=== PATIENT | female | born 1980 | race Two or more races ===

== ENCOUNTER 2021-05-14 10:06 | Emergency (ER) | payer SELFPAY ==
[~2021-05-14] VITALS: Ht 154.9 cm; Wt 160.0 kg
[2021-05-14 10:58] LABS: BASO % 1 % (0-3); EOS # 0.1 x10^3/uL (0.0-0.7); EOS % 1 % (0-3); HEMATOCRIT 36.7 % (36.0-47.0); HEMOGLOBIN 12.7 g/dL (12.0-15.5); LYMPH # 1.5 x10^3/uL (1.0-4.8); LYMPH % 28 % (24-48); MEAN CORPUSCULAR HEMOGLOBIN 30 pg (25-35); MEAN CORPUSCULAR HGB CONC 35 g/dL (31-37); MEAN CORPUSCULAR VOLUME 86 fL (79-100); MONO # 0.3 x10^3/uL (0.0-1.1); MONO % 6 % (0-9); NEUT # 3.3 x10^3/uL (1.8-7.7); NEUT % 64 % (31-73); PLATELET COUNT 241 x10^3/uL (140-400); RED BLOOD COUNT 4.26 x10^6/uL (3.50-5.40); RED CELL DISTRIBUTION WIDTH 12.2 % (11.5-14.5); WHITE BLOOD COUNT 5.2 x10^3/uL (4.0-11.0)
[2021-05-14 11:10] LABS: PROTHROMBIN TIME PATIENT 13.2 SEC (11.7-14.0)
[2021-05-14 11:11] LABS: CALCIUM 8.3 mg/dL (8.5-10.1); CREATININE 0.5 mg/dL (0.6-1.0); GFR 135.3; POTASSIUM 4.1 mmol/L (3.5-5.1)
[2021-05-14 11:12] VITALS: BP 145/67
[2021-05-14 11:17] LABS: ALBUMIN 3.8 g/dL (3.4-5.0); ALBUMIN/GLOBULIN RATIO 1.2 (1.0-1.7); TOTAL BILIRUBIN 0.4 mg/dL (0.2-1.0); TOTAL PROTEIN 6.9 g/dL (6.4-8.2)
[2021-05-14 11:33] LABS: BACTERIA,URINE FEW /HPF (0-FEW)
--- NOTE | 2021-05-14 11:43 | RAD ---
US OB <14 WKS History: Reason: vag bleeding in Preg x 4 days; large clots- 12 wks preg / Spl. Instructions: / Hist ory: Comparison: None. Technique: Grayscale and color Doppler imaging of the pelvis was performed using transabdominal techn ique. Findings: The uterus measures 10 x 7.5 x 4.5 cm. No evidence of intrauterine gestational sac. Heterogeneous appearance of the endometrium with thicken ing measures 2.1 cm. Cervical length measures 3.3 cm. Right ovary measures 4.4 x 2.5 x 2.1 cm. Left ovary measures 2.9 x 2.5 x 2.0 cm. Normal Doppler flow to the ovaries bilaterally. No adnexal masses are seen. IMPRESSION: 1. No evidence of intrauterine gestational sac, may represent failed early given history o f reported 12 weeks . Recommend further clinical evaluation and short-term ultrasound follow- up if indicated. Electronically signed by: Marin Vogt DO (05/14/2021 11:41 AM) [id number]
--- NOTE | 2021-05-14 12:58 | PHYS DOC ---
Past Medical History Past Surgical History: No Surgical History Smoking Status: Never Smoker Alcohol Use: None Adult General Chief Complaint Chief Complaint: ABDOMINAL PAIN HPI HPI Patient is a 41 year old female with vaginal bleeding. Patient states that she is about 12 weeks . Last menstrual period was at the end of January. She developed some cramping a couple of days ago and then had some heavy bleeding up until yesterday. The bleeding is slowed down but she does have some residual cramps. She not feel lightheaded and has not had any syncopal episodes or generalized weakness. Review of Systems Review of Systems Constitutional: Denies fever Eyes: Denies change in visual acuity or eye pain HENT: Denies sore throat Respiratory: Denies shortness of breath Cardiovascular: Denies chest pain GI: Reports crampy abd pain, improving : Denies dysuria Musculoskeletal: Denies back or extremity injury Integument: Denies rash or skin lesions Neurologic: Denies headache, focal weakness or sensory changes All other systems were reviewed and found to be within normal limits, except as documented in this note. Allergies Allergies Allergies Coded Allergies Type Severity Reaction Last Updated Verified No Known Drug Allergies 05/14/21 No Physical Exam Physical Exam Constitutional: Well developed, well nourished, no acute distress, non-toxic appearance. HENT: Normocephalic, atraumatic, bilateral external ears normal, mucosa moist, nose normal. Eyes: EOMI, conjunctiva normal, no discharge. Neck: Normal range of motion, supple, no stridor, no meningeal signs. Cardiovascular: Regular rate and rhythm Lungs & Thorax: Bilateral breath sounds clear to auscultation Abdomen: Soft, no tenderness or obvious masses Skin: Warm, dry, no erythema, no rash. Extremities: No tenderness, no cyanosis, no clubbing, ROM intact, no edema. Neurologic: Alert and oriented, normal motor function, normal sensory function, no focal deficits noted. Psychologic: Affect normal, judgement normal, mood normal. Current Patient Data Vital Signs Vital Signs Date Time Temp Pulse Resp B/P (MAP) Pulse Ox O2 Delivery O2 Flow Rate FiO2 05/14/21 11:12 82 16 145/67 (93) 98 05/14/21 10:17 98.0 98.0 Lab Values Laboratory Tests Test 05/14/21 10:34 05/14/21 10:36 05/14/21 10:45 Urine Collection Type Unknown Urine Color (Auto) Yellow Urine Turbidity Hazy Urine pH (Auto) 6.5 (<5.0-8.0) Urine Specific [place] 1.031 (1.000-1.030) Urine Protein (Auto) Negative mg/dL (Negative) Urine Glucose (Auto)(UA) Negative mg/dL (Negative) Urine Ketones (Auto) Negative mg/dL (Negative) Urine Blood (Auto) Large (Negative) Urine Nitrite Negative (Negative) Urine Bilirubin (Auto) Negative (Negative) Urine Urobilinogen (Auto) 2 mg/dL (Normal) Urine Leukocyte Esterase (Auto) Negative (Negative) Urine RBC 11-20 /HPF (0-2) Urine WBC 1-4 /HPF (0-4) Urine Squamous Epithelial Cells Mod /LPF Urine Bacteria Few /HPF (0-FEW) Urine Mucus Mod /LPF POC Urine HCG, Qualitative Hcg positive (Negative) White Blood Count 5.2 x10^3/uL (4.0-11.0) Red Blood Count 4.26 x10^6/uL (3.50-5.40) Hemoglobin 12.7 g/dL (12.0-15.5) Hematocrit 36.7 % (36.0-47.0) Mean Corpuscular Volume 86 fL (79-100) Mean Corpuscular Hemoglobin 30 pg (25-35) Mean Corpuscular Hemoglobin Concent 35 g/dL (31-37) Red Cell Distribution Width 12.2 % (11.5-14.5) Platelet Count 241 x10^3/uL (140-400) Neutrophils (%) (Auto) 64 % (31-73) Lymphocytes (%) (Auto) 28 % (24-48) Monocytes (%) (Auto) 6 % (0-9) Eosinophils (%) (Auto) 1 % (0-3) Basophils (%) (Auto) 1 % (0-3) Neutrophils # (Auto) 3.3 x10^3/uL (1.8-7.7) Lymphocytes # (Auto) 1.5 x10^3/uL (1.0-4.8) Monocytes # (Auto) 0.3 x10^3/uL (0.0-1.1) Eosinophils # (Auto) 0.1 x10^3/uL (0.0-0.7) Basophils # (Auto) 0.0 x10^3/uL (0.0-0.2) Prothrombin Time 13.2 SEC (11.7-14.0) Prothrombin Time INR 1.0 (0.8-1.1) Activated Partial Thromboplast Time 29 SEC (24-38) Maternal Serum HCG Beta Subunit 290 mIU/mL (0-5) H Sodium Level 144 mmol/L (136-145) Potassium Level 4.1 mmol/L (3.5-5.1) Chloride Level 107 mmol/L (98-107) Carbon Dioxide Level 26 mmol/L (21-32) Anion Gap 11 (6-14) Blood Urea Nitrogen 14 mg/dL (7-20) Creatinine 0.5 mg/dL (0.6-1.0) L Estimated GFR (Cockcroft-Gault) 135.3 BUN/Creatinine Ratio 28 (6-20) H Glucose Level 98 mg/dL (70-99) Calcium Level 8.3 mg/dL (8.5-10.1) L Total Bilirubin 0.4 mg/dL (0.2-1.0) Aspartate Amino Transferase (AST) 13 U/L (15-37) L Alanine Aminotransferase (ALT) 30 U/L (14-59) Alkaline Phosphatase 45 U/L (46-116) L Total Protein 6.9 g/dL (6.4-8.2) Albumin 3.8 g/dL (3.4-5.0) Albumin/Globulin Ratio 1.2 (1.0-1.7) Lipase 88 U/L (73-393) Laboratory Tests 05/14/21 10:45 Laboratory Tests 05/14/21 10:45 EKG EKG [] Radiology/Procedures Radiology/Procedures [] Impressions: PATIENT: JACQUIE BENSONCOUNT: [id number] : 1980 LOCATION: ER AGE: 41 SEX: F EXAM STATUS: REG ER ORD. PHYSICIAN: ALFA DEGROOT MD REASON: vag bleeding in Preg x 4 days; large clots- 12 wks preg PROCEDURE: PREG 1ST TRIMESTER US OB <14 WKS History: Reason: vag bleeding in Preg x 4 days; large clots- 12 wks preg / Spl. Instructions: / History: Comparison: None. Technique: Grayscale and color Doppler imaging of the pelvis was performed using transabdominal technique. Findings: The uterus measures 10 x 7.5 x 4.5 cm. No evidence of intrauterine gestational sac. Heterogeneous appearance of the endometrium with thickening measures 2.1 cm. Cervical length measures 3.3 cm. Right ovary measures 4.4 x 2.5 x 2.1 cm. Left ovary measures 2.9 x 2.5 x 2.0 cm. Normal Doppler flow to the ovaries bilaterally. No adnexal masses are seen. IMPRESSION: 1. No evidence of intrauterine gestational sac, may represent failed early given history of reported 12 weeks . Recommend further clinical evaluation and short-term ultrasound follow-up if indicated. Electronically signed by: Zia Hunter DO (05/14/2021 11:41 AM) [id number] DICTATED and SIGNED BY: ZIA HUNTER DO DATE: 05/14/21 1138 Course & Med Decision Making Course & Med Decision Making Pertinent Labs and Imaging studies reviewed. (See chart for details) [] Is a 41-year-old female presents with vaginal bleeding at approximately 12 weeks . Bleeding is slowed. Ultrasound demonstrates a lack of an intrauterine gestation however she does have thickened endometrial tissue and does not have any surrounding free fluid in the pelvis. Her quantitative beta- hCG is 290 and hemoglobin was within normal limits. This is indicative of a spontaneous . Patient is Rh+. We will have her follow-up with her [employer], return to the emergency department if symptoms become worse or other concerns arise, she stable for discharge at this time. Dragon Disclaimer Dragon Disclaimer This electronic medical record was generated, in whole or in part, using a voice recognition dictation system. Departure Departure Impression: Primary Impression: Spontaneous Disposition: HOME / SELF CARE / HOMELESS Condition: STABLE Referrals: NO PCP (PCP) Patient Instructions: Miscarriage ALFA DEGROOT MD May 14, 2021 12:58
== END 2021-05-14 13:21 | disposition home or self-care (01) ==
LOC: ER 10:06
DX: O03.9 Complete or unspecified spontaneous abortion without complication (principal); Z3A.12 12 weeks gestation of pregnancy
CPT/HCPCS: 36415; 76801; 80053; 81001; 81025; 83690; 84702; 85025; 85610; 85730; 86900; 86901; 99284